=== PATIENT | male | born 1970 | race American Indian/Alaskan Native ===

== ENCOUNTER 2020-04-01 08:54 | Outpatient (CLI) | payer OTHER | END 2020-04-01 08:55 | disposition left against medical advice (07) | LOC: LAB 08:54 | PROVIDERS: ATTEND Internal Medicine | DX: I12.9 Hypertensive chronic kidney disease with stage 1 through stage 4 chronic kidney disease, or unspecified chronic kidney disease (principal); N18.9 Chronic kidney disease, unspecified; N17.9 Acute kidney failure, unspecified; I25.2 Old myocardial infarction; R79.89 Other specified abnormal findings of blood chemistry | CPT/HCPCS: 36415; 82565 ==